=== PATIENT | male | born 1975 | race Caucasian/White ===

== ENCOUNTER 2017-04-14 15:35 | Emergency (ER) | payer OTHER ==
[~2017-04-14] VITALS: Ht 182.9 cm; Wt 102.3 kg
[~2017-04-14 15:35] MED LIST: QUET100T PO
[2017-04-14 16:10] LABS: BASOPHILS % (AUTO) 0.3 % (0.0-2.0); EOSINOPHILS % (AUTO) 1.1 % (1.0-6.0); HEMATOCRIT 33.3 % (41-53); HEMOGLOBIN 10.7 g/dL (13.5-17.5); LYMPHOCYTES # (AUTO) 1.6 K/uL (1.0-4.8); LYMPHOCYTES % (AUTO) 20.1 % (22.0-44.0); MEAN CORPUSCULAR HEMOGLOBIN 23.1 pg (26.0-34.0); MEAN CORPUSCULAR HGB CONC 32.3 G/dL (31.0-37.0); MEAN CORPUSCULAR VOLUME 72 fL (80-100); MONOCYTES # (AUTO) 0.5 K/uL (0.1-1.0); MONOCYTES % (AUTO) 5.8 % (2.0-9.0); NEUTROPHILS # (AUTO) 5.9 K/uL (1.8-7.7); NEUTROPHILS % (AUTO) 72.7 % (40.0-70.0); PLATELET COUNT (AUTO) 412 K/uL (150-450); RED BLOOD CELL COUNT(AUTO) 4.64 MIL/uL (4.50-5.90); RED CELL DISTRIBUTION WIDTH 17.8 % (11.5-14.5); WHITE BLOOD COUNT (AUTO) 8.1 K/uL (4.5-11.0)
[2017-04-14 16:19] LABS: ANION GAP 11 mmol/L (8-16); CALCIUM, TOTAL 9.1 mg/dL (8.8-10.5); CARBON DIOXIDE 24 mmol/L (22-29); CHLORIDE 105 mmol/L (98-107); CREATININE 1.06 mg/dL (0.60-1.30); GLOMERULAR FILTR. RATE CALC > 60 mL/min (>60); POTASSIUM 3.7 mmol/L (3.5-5.1); SODIUM SERUM 140 mmol/L (136-145); UREA NITROGEN, BLOOD 13 mg/dL (7-18)
[2017-04-14 16:25] LABS: ALANINE AMINOTRANSFERASE 26 U/L (12-78); ALBUMIN 3.6 g/dL (3.4-5.0); ASPARTATE AMINOTRANSFERASE 15 U/L (15-37); BILIRUBIN,TOTAL 0.2 mg/dL (0.1-1.0); TOTAL PROTEIN, SERUM 7.9 g/dL (6.4-8.2)
[2017-04-14 16:36] LABS: RBC MORPHOLOGY COMMENT ABNORMAL RBC MORPH
[2017-04-14] MEDS ORDERED: LORazepam 2 MG TABLET PO ONE (20:00)
[2017-04-14 20:17] VITALS: BP 119/76
== END 2017-04-14 20:25 | disposition home or self-care (01) ==
LOC: EMS 15:36
DX: F41.9 Anxiety disorder, unspecified (principal); F20.9 Schizophrenia, unspecified; F17.210 Nicotine dependence, cigarettes, uncomplicated
CPT/HCPCS: 36415; 80053; 80307; 85025; 99284; 99406; G0480

== ENCOUNTER 2017-08-09 20:41 | Inpatient (IN) | payer MEDICAID, OTHER ==
[~2017-08-09] VITALS: Ht 182.9 cm; Wt 113.1 kg
[2017-08-09] MEDS ORDERED: LORA0.5T2 PO (21:00)
[2017-08-09] MEDS ORDERED: HALO1 PO (21:00)
[2017-08-09] MEDS ORDERED: BENZ0.5T6 PO (21:00)
[2017-08-09] MEDS ORDERED: OLAN2.5T3 PO (21:00)
[2017-08-09] MEDS ORDERED: INFLUENZA VIRUS VACCINE QVS 2017-18 (3YR+)/PF 60 MCG/0.5 ML SYRINGE IM ONE (21:15)
[2017-08-09 21:26] LABS: BASOPHILS # (AUTO) 0.06 K/uL (0.00-0.20); BASOPHILS % (AUTO) 0.8 % (0.0-2.0); EOSINOPHILS # (AUTO) 0.09 K/uL (0.00-0.70); EOSINOPHILS % (AUTO) 1.18 % (1.0-6.0); HEMOGLOBIN 9.7 g/dL (13.5-17.5); LYMPHOCYTES # (AUTO) 2.3 K/uL (1.0-4.8); LYMPHOCYTES % (AUTO) 30.8 % (22.0-44.0); MEAN CORPUSCULAR HEMOGLOBIN 20.3 pg (26.0-34.0); MEAN CORPUSCULAR HGB CONC 30.4 G/dL (31.0-37.0); MEAN CORPUSCULAR VOLUME 67 fL (80-100); MONOCYTES # (AUTO) 0.7 K/uL (0.1-1.0); MONOCYTES % (AUTO) 8.8 % (2.0-9.0); NEUTROPHILS # (AUTO) 4.4 K/uL (1.8-7.7); NEUTROPHILS % (AUTO) 58.4 % (40.0-70.0); PLATELET COUNT (AUTO) 468 K/uL (150-450); RED CELL DISTRIBUTION WIDTH 19.9 % (11.5-14.5)
[2017-08-09 21:35] LABS: ANION GAP 5 mmol/L (8-16); CALCIUM, TOTAL 8.6 mg/dL (8.8-10.5); CARBON DIOXIDE 30 mmol/L (22-29); CHLORIDE 102 mmol/L (98-107); CREATININE 0.94 mg/dL (0.60-1.30); GLOMERULAR FILTR. RATE CALC > 60 mL/min (>60); GLUCOSE,RANDOM 108 mg/dL (70-110); POTASSIUM 3.7 mmol/L (3.5-5.1); SODIUM SERUM 137 mmol/L (136-145); UREA NITROGEN, BLOOD 13 mg/dL (7-18)
[2017-08-09 21:36] LABS: AMPHET/METH SCREEN,URINE POSITIVE (NEGATIVE); BARBITURATE SCREEN, URINE NEGATIVE (NEGATIVE); BENZODIAZEPINES SCREEN,URINE NEGATIVE (NEGATIVE); CANNABINOID SCREEN,URINE NEGATIVE (NEGATIVE); COCAINE SCREEN,URINE NEGATIVE (NEGATIVE); METHADONE SCREEN, URINE NEGATIVE (NEGATIVE); OPIATE SCREEN,URINE NEGATIVE (NEGATIVE)
[2017-08-09 21:39] LABS: APPEARANCE,URINE CLEAR (CLEAR); BILIRUBIN,URINE NEGATIVE (NEGATIVE); GLUCOSE, URINE (UA) NEGATIVE (NEGATIVE); KETONES,URINE NEGATIVE (NEGATIVE); LEUKOCYTE ESTERASE ,URINE NEGATIVE (NEGATIVE); NITRATE,URINE NEGATIVE (NEGATIVE); OCCULT BLOOD,URINE NEGATIVE (NEGATIVE); PHENCYCLIDINE SCREEN,URINE NEGATIVE (NEGATIVE); PROTEIN,URINE NEGATIVE (NEGATIVE); UROBILINOGEN,URINE 0.2 mg/dL (<=1.0)
[2017-08-09 21:41] LABS: ALANINE AMINOTRANSFERASE 25 U/L (12-78); ALBUMIN 3.3 g/dL (3.4-5.0); ALKALINE PHOSPHATASE 95 U/L (46-116); ASPARTATE AMINOTRANSFERASE 16 U/L (15-37); BILIRUBIN,TOTAL 0.2 mg/dL (0.1-1.0); TOTAL PROTEIN, SERUM 7.5 g/dL (6.4-8.2)
[2017-08-09 22:08] LABS: PLATELET MORPHOLOGY COMMENT INCREASED
[2017-08-09] MEDS: ZOLPIDEM TARTRATE 10 MG TABLET PO PRN (22:56)
[2017-08-09] MEDS: LORazepam 2 MG TABLET PO PRN (22:56)
[2017-08-10 06:22] LABS: BASOPHILS # (AUTO) 0.06 K/uL (0.00-0.20); BASOPHILS % (AUTO) 0.7 % (0.0-2.0); EOSINOPHILS # (AUTO) 0.11 K/uL (0.00-0.70); EOSINOPHILS % (AUTO) 1.44 % (1.0-6.0); HEMATOCRIT 30.6 % (41-53); HEMOGLOBIN 9.6 g/dL (13.5-17.5); LYMPHOCYTES # (AUTO) 2.4 K/uL (1.0-4.8); LYMPHOCYTES % (AUTO) 31.2 % (22.0-44.0); MEAN CORPUSCULAR HEMOGLOBIN 20.9 pg (26.0-34.0); MEAN CORPUSCULAR HGB CONC 31.3 G/dL (31.0-37.0); MEAN CORPUSCULAR VOLUME 67 fL (80-100); MONOCYTES # (AUTO) 0.8 K/uL (0.1-1.0); NEUTROPHILS # (AUTO) 4.3 K/uL (1.8-7.7); NEUTROPHILS % (AUTO) 56.6 % (40.0-70.0); PLATELET COUNT (AUTO) 413 K/uL (150-450); RED BLOOD CELL COUNT(AUTO) 4.59 MIL/uL (4.50-5.90); RED CELL DISTRIBUTION WIDTH 19.6 % (11.5-14.5)
[2017-08-10 06:31] LABS: HEMOGLOBIN A1C 5.7 % (4.5-6.2)
[2017-08-10 07:06] LABS: ALANINE AMINOTRANSFERASE 25 U/L (12-78); ALBUMIN 3.1 g/dL (3.4-5.0); ALKALINE PHOSPHATASE 88 U/L (46-116); ANION GAP 5 mmol/L (8-16); ASPARTATE AMINOTRANSFERASE 15 U/L (15-37); BILIRUBIN,TOTAL 0.2 mg/dL (0.1-1.0); CALCIUM, TOTAL 8.4 mg/dL (8.8-10.5); CARBON DIOXIDE 30 mmol/L (22-29); CHLORIDE 103 mmol/L (98-107); CHOL/HDL RATIO 3.7 (4.2-7.3); CHOLESTEROL 119 mg/dL (131-200); CREATININE 1.13 mg/dL (0.60-1.30); FREE T4 (FREE THYROXINE) 0.92 ng/dL (0.76-1.46); GLOMERULAR FILTR. RATE CALC > 60 mL/min (>60); GLUCOSE,RANDOM 92 mg/dL (70-110); HDL CHOLESTEROL 32 mg/dL (40-60); LDL CHOL (CALC.) 69 mg/dL (0-130); POTASSIUM 3.9 mmol/L (3.5-5.1); SODIUM SERUM 138 mmol/L (136-145); THYROID STIMULATING HORMONE 2.35 uIU/mL (0.36-3.74); TOTAL PROTEIN, SERUM 7.1 g/dL (6.4-8.2); TRIGLYCERIDES 92 mg/dL (15-150); UREA NITROGEN, BLOOD 13 mg/dL (7-18)
[2017-08-10] MEDS ORDERED: NICOTINE 14 MG/24 HOUR PATCH TD ONE (09:50)
[2017-08-10] MEDS: HALOPERIDOL 5 MG TABLET PO PRN ×2 (10:02→14:05)
[2017-08-10] MEDS: LORazepam 2 MG TABLET PO PRN ×2 (10:02→14:05)
[2017-08-10 17:08] VITALS: BP 127/77
[2017-08-10] MEDS: ZOLPIDEM TARTRATE 10 MG TABLET PO PRN (21:00)
[2017-08-11 08:00] VITALS: BP 132/83
[2017-08-11] MEDS: LORazepam 2 MG TABLET PO PRN (10:34)
[2017-08-11] MEDS: HALOPERIDOL 5 MG TABLET PO PRN (10:34)
[2017-08-11] MEDS ORDERED: BENZTROPINE MESYLATE 0.5 MG TABLET PO SCH (11:15)
[2017-08-11] MEDS ORDERED: OLANZapine 2.5 MG TABLET PO SCH (11:15)
[2017-08-11] MEDS ORDERED: QUET200T PO (11:17)
[2017-08-11] MEDS ORDERED: QUEtiapine FUMARATE 200 MG TABLET PO SCH (17:00)
== END 2017-08-11 15:17 | disposition home or self-care (01) | DRG 750 ==
LOC: BV PSY EVL 20:42 → 3EI 08-10 15:35
PROVIDERS: ADMIT Psychiatry & Neurology Child & Adolescent Psychiatry; ATTEND Psychiatry & Neurology Child & Adolescent Psychiatry
DX: F20.0 Paranoid schizophrenia (principal); F15.10 Other stimulant abuse, uncomplicated; D64.9 Anemia, unspecified; Z28.21 Immunization not carried out because of patient refusal; F12.90 Cannabis use, unspecified, uncomplicated; F17.210 Nicotine dependence, cigarettes, uncomplicated; F41.9 Anxiety disorder, unspecified
CPT/HCPCS: 83036; 84439; 84443; 99285; G0480

== ENCOUNTER 2017-08-17 16:14 | Emergency (ER) | payer MEDICAID, OTHER ==
[~2017-08-17] VITALS: Ht 182.9 cm; Wt 100.0 kg
[~2017-08-17 16:14] MED LIST changes: +BENZ0.5T6 PO; +OLAN2.5T3 PO; -QUET100T PO; +QUET200T PO
[2017-08-17] MEDS ORDERED: HALOPERIDOL 5 MG TABLET PO ONE (17:30)
[2017-08-17 19:37] VITALS: BP 138/80
== END 2017-08-17 19:39 | disposition home or self-care (01) ==
LOC: EMS 16:15
DX: F20.9 Schizophrenia, unspecified (principal); F64.9 Gender identity disorder, unspecified; F17.210 Nicotine dependence, cigarettes, uncomplicated
CPT/HCPCS: 99284

== ENCOUNTER 2017-10-16 00:14 | Emergency (ER) | payer OTHER ==
[~2017-10-16] VITALS: Ht 182.9 cm; Wt 102.3 kg
[2017-10-16] MEDS ORDERED: HALOPERIDOL LACTATE 5 MG/ML VIAL IM ONE (01:00)
[2017-10-16] MEDS ORDERED: LORazepam 2 MG/ML VIAL IM ONE (01:00)
[2017-10-16] MEDS ORDERED: DiphenhydrAMINE HCL 50 MG/ML VIAL IM ONE (01:00)
[2017-10-16 01:16] LABS: BASOPHILS % (AUTO) 1.2 % (0.0-2.0); HEMATOCRIT 31.3 % (41-53); HEMOGLOBIN 9.7 g/dL (13.5-17.5); LYMPHOCYTES # (AUTO) 2.2 K/uL (1.0-4.8); LYMPHOCYTES % (AUTO) 32.3 % (22.0-44.0); MEAN CORPUSCULAR HEMOGLOBIN 20.1 pg (26.0-34.0); MEAN CORPUSCULAR HGB CONC 31.1 G/dL (31.0-37.0); MEAN CORPUSCULAR VOLUME 65 fL (80-100); MONOCYTES # (AUTO) 0.8 K/uL (0.1-1.0); MONOCYTES % (AUTO) 11.2 % (2.0-9.0); NEUTROPHILS # (AUTO) 3.7 K/uL (1.8-7.7); NEUTROPHILS % (AUTO) 53.3 % (40.0-70.0); PLATELET COUNT (AUTO) 384 K/uL (150-450); RED BLOOD CELL COUNT(AUTO) 4.83 MIL/uL (4.50-5.90); RED CELL DISTRIBUTION WIDTH 19.5 % (11.5-14.5)
[2017-10-16 01:26] LABS: ANION GAP 8 mmol/L (8-16); CALCIUM, TOTAL 9.2 mg/dL (8.8-10.5); CARBON DIOXIDE 29 mmol/L (22-29); CHLORIDE 104 mmol/L (98-107); CREATININE 1.06 mg/dL (0.60-1.30); GLOMERULAR FILTR. RATE CALC > 60 mL/min (>60); GLUCOSE,RANDOM 99 mg/dL (70-110); SODIUM SERUM 141 mmol/L (136-145); UREA NITROGEN, BLOOD 14 mg/dL (7-18)
[2017-10-16 01:32] LABS: ALANINE AMINOTRANSFERASE 18 U/L (12-78); ALKALINE PHOSPHATASE 97 U/L (46-116); ASPARTATE AMINOTRANSFERASE 12 U/L (15-37); BILIRUBIN,TOTAL 0.2 mg/dL (0.1-1.0)
[2017-10-16 02:33] LABS: AMPHET/METH SCREEN,URINE POSITIVE (NEGATIVE); BARBITURATE SCREEN, URINE NEGATIVE (NEGATIVE); BENZODIAZEPINES SCREEN,URINE NEGATIVE (NEGATIVE); CANNABINOID SCREEN,URINE NEGATIVE (NEGATIVE); COCAINE SCREEN,URINE NEGATIVE (NEGATIVE); METHADONE SCREEN, URINE NEGATIVE (NEGATIVE); OPIATE SCREEN,URINE NEGATIVE (NEGATIVE)
[2017-10-16 02:37] LABS: PHENCYCLIDINE SCREEN,URINE NEGATIVE (NEGATIVE)
[2017-10-16 05:30] VITALS: BP 136/78
== END 2017-10-16 06:11 | disposition home or self-care (01) ==
LOC: EMS 00:15
DX: F25.9 Schizoaffective disorder, unspecified (principal); F17.210 Nicotine dependence, cigarettes, uncomplicated; Z79.899 Other long term (current) drug therapy
CPT/HCPCS: 36415; 80053; 80307; 85025; 96372; 99284; G0480; J1200; J1630; J2060

== ENCOUNTER 2017-11-02 19:48 | Emergency (ER) | payer OTHER ==
[~2017-11-02] VITALS: Ht 182.9 cm; Wt 102.3 kg
[~2017-11-02 19:48] MED LIST changes: +BENZ0.5T44 PO; -BENZ0.5T6 PO
[2017-11-02 19:51] VITALS: BP 146/71
[2017-11-02] MEDS ORDERED: HALO10 PO (20:01)
[2017-11-02] MEDS ORDERED: LORA0.5T2 PO (20:01)
[2017-11-02] MEDS ORDERED: BENZ1TAB10 PO (20:01)
[2017-11-02 20:47] LABS: BASOPHILS % (AUTO) 1.1 % (0.0-2.0); HEMATOCRIT 32.3 % (41-53); LYMPHOCYTES # (AUTO) 2.1 K/uL (1.0-4.8); LYMPHOCYTES % (AUTO) 26.2 % (22.0-44.0); MEAN CORPUSCULAR HEMOGLOBIN 19.9 pg (26.0-34.0); MEAN CORPUSCULAR HGB CONC 30.8 G/dL (31.0-37.0); MEAN CORPUSCULAR VOLUME 65 fL (80-100); MONOCYTES # (AUTO) 0.6 K/uL (0.1-1.0); MONOCYTES % (AUTO) 7.8 % (2.0-9.0); NEUTROPHILS % (AUTO) 62.9 % (40.0-70.0); PLATELET COUNT (AUTO) 385 K/uL (150-450); RED BLOOD CELL COUNT(AUTO) 5.01 MIL/uL (4.50-5.90); RED CELL DISTRIBUTION WIDTH 19.4 % (11.5-14.5)
[2017-11-02 20:57] LABS: ANION GAP 8 mmol/L (8-16); CALCIUM, TOTAL 8.8 mg/dL (8.8-10.5); CARBON DIOXIDE 28 mmol/L (22-29); CHLORIDE 107 mmol/L (98-107); CREATININE 0.87 mg/dL (0.60-1.30); GLOMERULAR FILTR. RATE CALC > 60 mL/min (>60); GLUCOSE,RANDOM 93 mg/dL (70-110); SODIUM SERUM 143 mmol/L (136-145); UREA NITROGEN, BLOOD 13 mg/dL (7-18)
[2017-11-02 21:00] LABS: ALANINE AMINOTRANSFERASE 29 U/L (12-78); ALBUMIN 3.5 g/dL (3.4-5.0); ALKALINE PHOSPHATASE 105 U/L (46-116); ASPARTATE AMINOTRANSFERASE 23 U/L (15-37); BILIRUBIN,TOTAL 0.2 mg/dL (0.1-1.0); TOTAL PROTEIN, SERUM 7.5 g/dL (6.4-8.2)
[2017-11-02 21:06] LABS: AMPHET/METH SCREEN,URINE POSITIVE (NEGATIVE); BARBITURATE SCREEN, URINE NEGATIVE (NEGATIVE); BENZODIAZEPINES SCREEN,URINE NEGATIVE (NEGATIVE); CANNABINOID SCREEN,URINE NEGATIVE (NEGATIVE); COCAINE SCREEN,URINE NEGATIVE (NEGATIVE); METHADONE SCREEN, URINE NEGATIVE (NEGATIVE); OPIATE SCREEN,URINE NEGATIVE (NEGATIVE)
[2017-11-02 21:08] LABS: PHENCYCLIDINE SCREEN,URINE NEGATIVE (NEGATIVE)
[2017-11-02 21:19] LABS: PLATELET MORPHOLOGY COMMENT GIANT PLTS PRESENT
[2017-11-03] MEDS ORDERED: QUET25TA PO (12:39)
[2017-11-03] MEDS ORDERED: VENL25TA47 PO (12:39)
== END 2017-11-02 22:30 | disposition left against medical advice (07) ==
LOC: EMS 19:49
DX: F29 Unspecified psychosis not due to a substance or known physiological condition (principal); Z53.21 Procedure and treatment not carried out due to patient leaving prior to being seen by health care provider
CPT/HCPCS: 36415; 80053; 80307; 85025; G0480

== ENCOUNTER 2017-11-03 12:31 | Inpatient (IN) | payer MEDICAID, OTHER ==
[~2017-11-03] VITALS: Ht 188 cm; Wt 108.7 kg
[~2017-11-03 12:31] MED LIST changes: -BENZ0.5T44 PO; +BENZ1TAB10 PO; +HALO10 PO; +LORA0.5T2 PO; -OLAN2.5T3 PO; -QUET200T PO
[2017-11-03] MEDS ORDERED: QUET25TA PO (12:39)
[2017-11-03] MEDS ORDERED: VENL25TA47 PO (12:39)
[2017-11-03 13:05] LABS: BASOPHILS % (AUTO) 1.2 % (0.0-2.0); EOSINOPHILS % (AUTO) 1.7 % (1.0-6.0); HEMATOCRIT 31.7 % (41-53); LYMPHOCYTES % (AUTO) 28.3 % (22.0-44.0); MEAN CORPUSCULAR HEMOGLOBIN 20.2 pg (26.0-34.0); MEAN CORPUSCULAR HGB CONC 31.5 G/dL (31.0-37.0); MEAN CORPUSCULAR VOLUME 64 fL (80-100); MONOCYTES # (AUTO) 0.5 K/uL (0.1-1.0); NEUTROPHILS # (AUTO) 4.3 K/uL (1.8-7.7); NEUTROPHILS % (AUTO) 61.8 % (40.0-70.0); PLATELET COUNT (AUTO) 378 K/uL (150-450); RED BLOOD CELL COUNT(AUTO) 4.94 MIL/uL (4.50-5.90); RED CELL DISTRIBUTION WIDTH 19.4 % (11.5-14.5)
[2017-11-03 13:09] LABS: ANION GAP 7 mmol/L (8-16); CALCIUM, TOTAL 8.8 mg/dL (8.8-10.5); CARBON DIOXIDE 28 mmol/L (22-29); CHLORIDE 106 mmol/L (98-107); CREATININE 0.88 mg/dL (0.60-1.30); GLOMERULAR FILTR. RATE CALC > 60 mL/min (>60); GLUCOSE,RANDOM 100 mg/dL (70-110); POTASSIUM 3.8 mmol/L (3.5-5.1); SODIUM SERUM 141 mmol/L (136-145); UREA NITROGEN, BLOOD 11 mg/dL (7-18)
[2017-11-03 13:15] LABS: ALANINE AMINOTRANSFERASE 26 U/L (12-78); ALBUMIN 3.4 g/dL (3.4-5.0); ALKALINE PHOSPHATASE 102 U/L (46-116); ASPARTATE AMINOTRANSFERASE 15 U/L (15-37); BILIRUBIN,TOTAL 0.3 mg/dL (0.1-1.0); TOTAL PROTEIN, SERUM 7.4 g/dL (6.4-8.2)
[2017-11-03 13:16] LABS: AMPHET/METH SCREEN,URINE POSITIVE (NEGATIVE); BARBITURATE SCREEN, URINE NEGATIVE (NEGATIVE); BENZODIAZEPINES SCREEN,URINE NEGATIVE (NEGATIVE); CANNABINOID SCREEN,URINE NEGATIVE (NEGATIVE); COCAINE SCREEN,URINE NEGATIVE (NEGATIVE); METHADONE SCREEN, URINE NEGATIVE (NEGATIVE); OPIATE SCREEN,URINE NEGATIVE (NEGATIVE)
[2017-11-03 13:18] LABS: PHENCYCLIDINE SCREEN,URINE NEGATIVE (NEGATIVE)
[2017-11-03] MEDS ORDERED: LORazepam 2 MG TABLET PO ONE (13:45)
[2017-11-03] MEDS ORDERED: HALOPERIDOL 5 MG TABLET PO ONE (13:45)
[2017-11-03] MEDS ORDERED: LOPERAMIDE HCL 2 MG CAPSULE PO PRN (14:15)
[2017-11-03] MEDS ORDERED: MAG HYDROX/AL HYDROX/SIMETH ES 30 ML SUSPENSION UDCUP PO PRN (14:15)
[2017-11-03] MEDS ORDERED: GuaiFENesin/D-METHORPHAN [SUGAR-FREE] 200-20MG/10 ML SYRUP UDCUP PO PRN (14:15)
[2017-11-03] MEDS ORDERED: MAGNESIUM HYDROXIDE SUSPENSION 30 ML UDCUP PO PRN (14:15)
[2017-11-03] MEDS ORDERED: PROMETHAZINE HCL 25 MG TABLET PO PRN (14:15)
[2017-11-03] MEDS ORDERED: ACETAMINOPHEN 325 MG TABLET PO PRN (14:15)
[2017-11-03] MEDS ORDERED: HydrOXYzine PAMOATE 50 MG CAPSULE PO PRN (14:15)
[2017-11-03] MEDS ORDERED: TUBERCULIN, PURIFIED PROTEIN DERIVATIVE 5 TU/0.1 ML SYG ID ONE (14:15)
[2017-11-03 21:15] VITALS: BP 117/66
[2017-11-04 06:39] LABS: BASOPHILS % (AUTO) 1.2 % (0.0-2.0); EOSINOPHILS % (AUTO) 2.7 % (1.0-6.0); HEMATOCRIT 30.5 % (41-53); HEMOGLOBIN 9.6 g/dL (13.5-17.5); LYMPHOCYTES # (AUTO) 2.3 K/uL (1.0-4.8); LYMPHOCYTES % (AUTO) 36.2 % (22.0-44.0); MEAN CORPUSCULAR HEMOGLOBIN 20.3 pg (26.0-34.0); MEAN CORPUSCULAR HGB CONC 31.5 G/dL (31.0-37.0); MEAN CORPUSCULAR VOLUME 64 fL (80-100); MONOCYTES # (AUTO) 0.5 K/uL (0.1-1.0); MONOCYTES % (AUTO) 8.7 % (2.0-9.0); NEUTROPHILS # (AUTO) 3.2 K/uL (1.8-7.7); NEUTROPHILS % (AUTO) 51.2 % (40.0-70.0); PLATELET COUNT (AUTO) 360 K/uL (150-450); RED BLOOD CELL COUNT(AUTO) 4.75 MIL/uL (4.50-5.90); RED CELL DISTRIBUTION WIDTH 19.4 % (11.5-14.5)
[2017-11-04 07:33] LABS: ALANINE AMINOTRANSFERASE 22 U/L (12-78); ALKALINE PHOSPHATASE 86 U/L (46-116); ANION GAP 6 mmol/L (8-16); ASPARTATE AMINOTRANSFERASE 11 U/L (15-37); BILIRUBIN,TOTAL 0.3 mg/dL (0.1-1.0); CALCIUM, TOTAL 8.5 mg/dL (8.8-10.5); CARBON DIOXIDE 27 mmol/L (22-29); CHLORIDE 106 mmol/L (98-107); CHOL/HDL RATIO 3.9 (4.2-7.3); CHOLESTEROL 110 mg/dL (131-200); CREATININE 0.87 mg/dL (0.60-1.30); FREE T4 (FREE THYROXINE) 0.91 ng/dL (0.76-1.46); GLOMERULAR FILTR. RATE CALC > 60 mL/min (>60); GLUCOSE,RANDOM 86 mg/dL (70-110); HDL CHOLESTEROL 28 mg/dL (40-60); LDL CHOL (CALC.) 66 mg/dL (0-130); POTASSIUM 4.1 mmol/L (3.5-5.1); SODIUM SERUM 139 mmol/L (136-145); THYROID STIMULATING HORMONE 2.04 uIU/mL (0.36-3.74); TOTAL PROTEIN, SERUM 6.5 g/dL (6.4-8.2); TRIGLYCERIDES 80 mg/dL (15-150); UREA NITROGEN, BLOOD 10 mg/dL (7-18)
[2017-11-04 07:41] LABS: HEMOGLOBIN A1C 5.4 % (4.5-6.2)
[2017-11-04 08:00] VITALS: BP 118/60
[2017-11-04] MEDS: THIAMINE HCL 100 MG TABLET PO SCH ×2 (08:31→17:29)
[2017-11-04] MEDS: MULTIVITAMINS WITH MINERALS, THERAPEUTIC TABLET PO SCH (08:31)
[2017-11-04] MEDS: HALOPERIDOL 1 MG TABLET PO SCH ×3 (08:31→17:30)
[2017-11-04] MEDS: NALTREXONE HCL 50 MG TABLET PO SCH (08:31)
[2017-11-04] MEDS: FOLIC ACID 1 MG TABLET PO SCH (08:31)
[2017-11-04] MEDS: LORazepam 2 MG TABLET PO PRN ×2 (08:32→14:06)
[2017-11-04] MEDS: HALOPERIDOL 5 MG TABLET PO PRN (14:06)
[2017-11-04 17:00] VITALS: BP 118/69
[2017-11-04] MEDS: HALOPERIDOL 2 MG TABLET PO SCH (20:38)
[2017-11-05 08:00] VITALS: BP 120/60
[2017-11-05] MEDS: HALOPERIDOL 2 MG TABLET PO SCH ×4 (09:06→20:03)
[2017-11-05] MEDS: NALTREXONE HCL 50 MG TABLET PO SCH (09:07)
[2017-11-05] MEDS: LORazepam 2 MG TABLET PO PRN ×3 (09:07→20:57)
[2017-11-05] MEDS: FOLIC ACID 1 MG TABLET PO SCH (09:07)
[2017-11-05] MEDS: THIAMINE HCL 100 MG TABLET PO SCH ×2 (09:07→16:43)
[2017-11-05] MEDS: MULTIVITAMINS WITH IRON TABLET PO SCH (09:07)
[2017-11-05] MEDS: MULTIVITAMINS WITH MINERALS, THERAPEUTIC TABLET PO SCH (09:07)
[2017-11-05 17:45] VITALS: BP 117/67
[2017-11-05] MEDS: NICOTINE 21 MG/24 HOUR PATCH TD SCH (20:55)
[2017-11-05] MEDS: ZOLPIDEM TARTRATE 10 MG TABLET PO PRN (20:57)
[2017-11-06 08:05] VITALS: BP 109/78
[2017-11-06] MEDS: NICOTINE 21 MG/24 HOUR PATCH TD SCH (09:51)
[2017-11-06] MEDS: HALOPERIDOL 2 MG TABLET PO SCH ×3 (09:51→16:16)
[2017-11-06] MEDS: NALTREXONE HCL 50 MG TABLET PO SCH (09:52)
[2017-11-06] MEDS: FOLIC ACID 1 MG TABLET PO SCH (09:52)
[2017-11-06] MEDS: MULTIVITAMINS WITH MINERALS, THERAPEUTIC TABLET PO SCH (09:52)
[2017-11-06] MEDS: THIAMINE HCL 100 MG TABLET PO SCH ×2 (09:52→16:17)
[2017-11-06] MEDS: MULTIVITAMINS WITH IRON TABLET PO SCH (09:52)
[2017-11-06] MEDS: HALOPERIDOL 5 MG TABLET PO PRN (13:52)
[2017-11-06] MEDS: LORazepam 2 MG TABLET PO PRN (13:52)
[2017-11-06] MEDS ORDERED: NALT50TA PO (17:29)
[2017-11-06] MEDS ORDERED: HALO2 PO (17:30)
[2017-11-06 17:43] VITALS: BP 103/59
[2017-11-06] MEDS: ZOLPIDEM TARTRATE 10 MG TABLET PO PRN (20:10)
[2017-11-06] MEDS: HALOPERIDOL 1 MG TABLET PO SCH (20:10)
[2017-11-07] MEDS: THIAMINE HCL 100 MG TABLET PO SCH (08:07)
[2017-11-07] MEDS: NALTREXONE HCL 50 MG TABLET PO SCH (08:07)
[2017-11-07] MEDS: MULTIVITAMINS WITH MINERALS, THERAPEUTIC TABLET PO SCH (08:07)
[2017-11-07] MEDS: FOLIC ACID 1 MG TABLET PO SCH (08:07)
[2017-11-07] MEDS: HALOPERIDOL 1 MG TABLET PO SCH ×2 (08:08→12:15)
[2017-11-07] MEDS: MULTIVITAMINS WITH IRON TABLET PO SCH (08:10)
[2017-11-07] MEDS: NICOTINE 21 MG/24 HOUR PATCH TD SCH (08:11)
[2017-11-07 08:56] VITALS: BP 126/64
[2017-11-07] MEDS ORDERED: MULT-1239 PO (09:51)
== END 2017-11-07 13:00 | disposition home or self-care (01) | DRG 750 ==
LOC: EMS 12:32 → 3EI 21:12
PROVIDERS: ADMIT Psychiatry & Neurology Psychiatry; ATTEND Psychiatry & Neurology Psychiatry
DX: F20.0 Paranoid schizophrenia (principal); R45.851 Suicidal ideations; D50.9 Iron deficiency anemia, unspecified; F41.9 Anxiety disorder, unspecified; F17.210 Nicotine dependence, cigarettes, uncomplicated; F12.90 Cannabis use, unspecified, uncomplicated; F15.90 Other stimulant use, unspecified, uncomplicated; Z79.899 Other long term (current) drug therapy; Z91.5 Personal history of self-harm
CPT/HCPCS: 80173; 83036; 84439; 84443; 86592; G0480

== ENCOUNTER 2017-11-21 18:16 | Inpatient (IN) | payer MEDICAID, OTHER ==
[~2017-11-21] VITALS: Ht 182.9 cm; Wt 148.3 kg
[~2017-11-21 18:16] MED LIST changes: -BENZ1TAB10 PO; -HALO10 PO; +HALO2 PO; -LORA0.5T2 PO; +MULT-1239 PO; +NALT50TA PO
[2017-11-21] MEDS ORDERED: DIPH25 PO (18:36)
[2017-11-21 19:15] LABS: AMPHET/METH SCREEN,URINE NEGATIVE (NEGATIVE); BARBITURATE SCREEN, URINE NEGATIVE (NEGATIVE); BENZODIAZEPINES SCREEN,URINE NEGATIVE (NEGATIVE); CANNABINOID SCREEN,URINE POSITIVE (NEGATIVE); COCAINE SCREEN,URINE NEGATIVE (NEGATIVE); METHADONE SCREEN, URINE NEGATIVE (NEGATIVE); OPIATE SCREEN,URINE NEGATIVE (NEGATIVE)
[2017-11-21 19:16] LABS: ANION GAP 6 mmol/L (8-16); CALCIUM, TOTAL 9.3 mg/dL (8.8-10.5); CARBON DIOXIDE 29 mmol/L (22-29); CHLORIDE 104 mmol/L (98-107); CREATININE 1.02 mg/dL (0.60-1.30); GLOMERULAR FILTR. RATE CALC > 60 mL/min (>60); GLUCOSE,RANDOM 95 mg/dL (70-110); POTASSIUM 4.2 mmol/L (3.5-5.1); SODIUM SERUM 139 mmol/L (136-145); UREA NITROGEN, BLOOD 12 mg/dL (7-18)
[2017-11-21 19:16] LABS: PHENCYCLIDINE SCREEN,URINE NEGATIVE (NEGATIVE)
[2017-11-21 19:21] LABS: ALANINE AMINOTRANSFERASE 30 U/L (12-78); ALBUMIN 3.7 g/dL (3.4-5.0); ALKALINE PHOSPHATASE 90 U/L (46-116); ASPARTATE AMINOTRANSFERASE 19 U/L (15-37); BILIRUBIN,TOTAL 0.2 mg/dL (0.1-1.0)
[2017-11-21 19:25] LABS: BASOPHILS % (AUTO) 0.9 % (0.0-2.0); EOSINOPHILS % (AUTO) 1.7 % (1.0-6.0); HEMATOCRIT 32.9 % (41-53); HEMOGLOBIN 10.3 g/dL (13.5-17.5); LYMPHOCYTES # (AUTO) 1.9 K/uL (1.0-4.8); LYMPHOCYTES % (AUTO) 19.6 % (22.0-44.0); MEAN CORPUSCULAR HEMOGLOBIN 20.6 pg (26.0-34.0); MEAN CORPUSCULAR HGB CONC 31.2 G/dL (31.0-37.0); MEAN CORPUSCULAR VOLUME 66 fL (80-100); MONOCYTES # (AUTO) 0.7 K/uL (0.1-1.0); NEUTROPHILS # (AUTO) 6.9 K/uL (1.8-7.7); NEUTROPHILS % (AUTO) 70.8 % (40.0-70.0); PLATELET COUNT (AUTO) 418 K/uL (150-450); RED BLOOD CELL COUNT(AUTO) 4.98 MIL/uL (4.50-5.90); RED CELL DISTRIBUTION WIDTH 21.9 % (11.5-14.5)
[2017-11-21] MEDS ORDERED: LORazepam 2 MG/ML VIAL IM ONE (19:30)
[2017-11-21] MEDS ORDERED: HALOPERIDOL LACTATE 5 MG/ML VIAL IM ONE (19:30)
[2017-11-21] MEDS ORDERED: HALOPERIDOL 5 MG TABLET PO PRN (21:15)
[2017-11-22 00:31] VITALS: BP 114/76
[2017-11-22] MEDS: LORazepam 2 MG TABLET PO PRN ×4 (00:39→16:19)
[2017-11-22] MEDS: ZOLPIDEM TARTRATE 10 MG TABLET PO PRN ×2 (00:39→20:22)
[2017-11-22 07:37] LABS: BASOPHILS % (AUTO) 0.7 % (0.0-2.0); EOSINOPHILS % (AUTO) 2.1 % (1.0-6.0); HEMATOCRIT 31.3 % (41-53); HEMOGLOBIN 9.9 g/dL (13.5-17.5); LYMPHOCYTES # (AUTO) 2.8 K/uL (1.0-4.8); LYMPHOCYTES % (AUTO) 34.2 % (22.0-44.0); MEAN CORPUSCULAR HEMOGLOBIN 20.9 pg (26.0-34.0); MEAN CORPUSCULAR HGB CONC 31.6 G/dL (31.0-37.0); MEAN CORPUSCULAR VOLUME 66 fL (80-100); MONOCYTES # (AUTO) 0.5 K/uL (0.1-1.0); MONOCYTES % (AUTO) 5.7 % (2.0-9.0); NEUTROPHILS # (AUTO) 4.6 K/uL (1.8-7.7); NEUTROPHILS % (AUTO) 57.3 % (40.0-70.0); PLATELET COUNT (AUTO) 423 K/uL (150-450); RED BLOOD CELL COUNT(AUTO) 4.73 MIL/uL (4.50-5.90)
[2017-11-22 07:59] LABS: ALANINE AMINOTRANSFERASE 26 U/L (12-78); ALBUMIN 3.2 g/dL (3.4-5.0); ALKALINE PHOSPHATASE 77 U/L (46-116); ANION GAP 8 mmol/L (8-16); ASPARTATE AMINOTRANSFERASE 16 U/L (15-37); BILIRUBIN,TOTAL 0.3 mg/dL (0.1-1.0); CALCIUM, TOTAL 8.9 mg/dL (8.8-10.5); CARBON DIOXIDE 28 mmol/L (22-29); CHLORIDE 105 mmol/L (98-107); CHOL/HDL RATIO 3.5 (4.2-7.3); CHOLESTEROL 110 mg/dL (131-200); CREATININE 0.77 mg/dL (0.60-1.30); GLOMERULAR FILTR. RATE CALC > 60 mL/min (>60); GLUCOSE,RANDOM 93 mg/dL (70-110); HDL CHOLESTEROL 31 mg/dL (40-60); LDL CHOL (CALC.) 60 mg/dL (0-130); POTASSIUM 4.2 mmol/L (3.5-5.1); SODIUM SERUM 141 mmol/L (136-145); TOTAL PROTEIN, SERUM 6.4 g/dL (6.4-8.2); TRIGLYCERIDES 95 mg/dL (15-150); UREA NITROGEN, BLOOD 13 mg/dL (7-18)
[2017-11-22 08:12] VITALS: BP 110/70
[2017-11-22] MEDS: HALOPERIDOL 1 MG TABLET PO SCH ×4 (09:26→20:22)
[2017-11-22 16:01] VITALS: BP 129/72
[2017-11-23 06:16] VITALS: BP 105/75
[2017-11-23] MEDS: FERROUS SULFATE 325 MG EC TABLET PO SCH (06:27)
[2017-11-23 08:05] VITALS: BP 104/66
[2017-11-23] MEDS: HALOPERIDOL 1 MG TABLET PO SCH ×4 (08:36→20:07)
[2017-11-23] MEDS: LORazepam 2 MG TABLET PO PRN ×3 (08:36→19:00)
[2017-11-23] MEDS: MULTIVITAMINS WITH IRON TABLET PO SCH (10:54)
[2017-11-23] MEDS: NICOTINE 21 MG/24 HOUR PATCH TD SCH (10:55)
[2017-11-23 16:21] VITALS: BP 130/68
[2017-11-23] MEDS: ZOLPIDEM TARTRATE 10 MG TABLET PO PRN (20:07)
[2017-11-24] MEDS: FERROUS SULFATE 325 MG EC TABLET PO SCH (06:34)
[2017-11-24 06:35] VITALS: BP 114/83
[2017-11-24] MEDS: MULTIVITAMINS WITH IRON TABLET PO SCH (08:06)
[2017-11-24] MEDS: HALOPERIDOL 1 MG TABLET PO SCH ×3 (08:06→16:27)
[2017-11-24] MEDS: NICOTINE 21 MG/24 HOUR PATCH TD SCH (08:07)
[2017-11-24 08:12] VITALS: BP 110/74
[2017-11-24 08:22] LABS: BASOPHILS % (AUTO) 0.7 % (0.0-2.0); HEMATOCRIT 34.8 % (41-53); HEMOGLOBIN 11.1 g/dL (13.5-17.5); LYMPHOCYTES # (AUTO) 2.2 K/uL (1.0-4.8); LYMPHOCYTES % (AUTO) 25.9 % (22.0-44.0); MEAN CORPUSCULAR HGB CONC 31.9 G/dL (31.0-37.0); MEAN CORPUSCULAR VOLUME 66 fL (80-100); MONOCYTES # (AUTO) 0.7 K/uL (0.1-1.0); MONOCYTES % (AUTO) 8.3 % (2.0-9.0); NEUTROPHILS # (AUTO) 5.3 K/uL (1.8-7.7); NEUTROPHILS % (AUTO) 63.1 % (40.0-70.0); PLATELET COUNT (AUTO) 457 K/uL (150-450); RED BLOOD CELL COUNT(AUTO) 5.29 MIL/uL (4.50-5.90); RED CELL DISTRIBUTION WIDTH 22.1 % (11.5-14.5)
[2017-11-24] MEDS: LORazepam 2 MG TABLET PO PRN (09:27)
[2017-11-24] MEDS ORDERED: MAGNESIUM HYDROXIDE SUSPENSION 30 ML UDCUP PO PRN (10:15)
[2017-11-24] MEDS ORDERED: PROMETHAZINE HCL 25 MG TABLET PO PRN (10:15)
[2017-11-24] MEDS ORDERED: ACETAMINOPHEN 325 MG TABLET PO PRN (10:15)
[2017-11-24] MEDS ORDERED: HydrOXYzine PAMOATE 50 MG CAPSULE PO PRN (10:15)
[2017-11-24] MEDS ORDERED: GuaiFENesin/D-METHORPHAN [SUGAR-FREE] 200-20MG/10 ML SYRUP UDCUP PO PRN (10:15)
[2017-11-24] MEDS ORDERED: LOPERAMIDE HCL 2 MG CAPSULE PO PRN (10:15)
[2017-11-24] MEDS ORDERED: MAG HYDROX/AL HYDROX/SIMETH ES 30 ML SUSPENSION UDCUP PO PRN (10:15)
[2017-11-24] MEDS ORDERED: HALO1 PO (13:38)
[2017-11-24] MEDS ORDERED: NALT50TA PO (13:38)
[2017-11-24 16:05] VITALS: BP 105/76
[2017-11-24] MEDS ORDERED: THIAMINE HCL 100 MG TABLET PO SCH (17:00)
[2017-11-25] MEDS ORDERED: FOLIC ACID 1 MG TABLET PO SCH (09:00)
[2017-11-25] MEDS ORDERED: MULTIVITAMINS WITH MINERALS, THERAPEUTIC TABLET PO SCH (09:00)
[2017-11-25] MEDS ORDERED: NALTREXONE HCL 50 MG TABLET PO SCH (09:00)
== END 2017-11-24 17:03 | disposition home or self-care (01) | DRG 750 ==
LOC: EMS 18:17 → B3A 21:30
PROVIDERS: ATTEND Psychiatry & Neurology Psychiatry
DX: F20.0 Paranoid schizophrenia (principal); R45.851 Suicidal ideations; D64.9 Anemia, unspecified; F12.10 Cannabis abuse, uncomplicated; F17.210 Nicotine dependence, cigarettes, uncomplicated; Z79.899 Other long term (current) drug therapy
CPT/HCPCS: 87081; 96372; 99285; G0480; J1630; J2060

== ENCOUNTER 2017-12-05 16:24 | Inpatient (IN) | payer MEDICAID, OTHER ==
[~2017-12-05] VITALS: Ht 170.2 cm; Wt 108.0 kg
[~2017-12-05 16:24] MED LIST changes: +HALO1 PO; -HALO2 PO
[2017-12-05] MEDS ORDERED: OLAN5TAB30 PO (16:28)
[2017-12-05 16:43] LABS: GLUCOSE,POINT OF CARE 97 MG/DL (70-110)
[2017-12-05 17:26] LABS: BASOPHILS % (AUTO) 1.2 % (0.0-2.0); HEMATOCRIT 32.9 % (41-53); HEMOGLOBIN 10.6 g/dL (13.5-17.5); LYMPHOCYTES % (AUTO) 27.5 % (22.0-44.0); MEAN CORPUSCULAR HEMOGLOBIN 21.8 pg (26.0-34.0); MEAN CORPUSCULAR HGB CONC 32.2 G/dL (31.0-37.0); MEAN CORPUSCULAR VOLUME 68 fL (80-100); MONOCYTES # (AUTO) 0.5 K/uL (0.1-1.0); MONOCYTES % (AUTO) 6.7 % (2.0-9.0); NEUTROPHILS # (AUTO) 4.6 K/uL (1.8-7.7); NEUTROPHILS % (AUTO) 63.6 % (40.0-70.0); PLATELET COUNT (AUTO) 366 K/uL (150-450); RED BLOOD CELL COUNT(AUTO) 4.87 MIL/uL (4.50-5.90); RED CELL DISTRIBUTION WIDTH 23.3 % (11.5-14.5)
[2017-12-05 17:37] LABS: ANION GAP 9 mmol/L (8-16); CALCIUM, TOTAL 8.5 mg/dL (8.8-10.5); CARBON DIOXIDE 27 mmol/L (22-29); CHLORIDE 108 mmol/L (98-107); CREATININE 0.91 mg/dL (0.60-1.30); GLOMERULAR FILTR. RATE CALC > 60 mL/min (>60); GLUCOSE,RANDOM 91 mg/dL (70-110); POTASSIUM 3.9 mmol/L (3.5-5.1); SODIUM SERUM 144 mmol/L (136-145); UREA NITROGEN, BLOOD 8 mg/dL (7-18)
[2017-12-05 17:44] LABS: ALANINE AMINOTRANSFERASE 20 U/L (12-78); ALBUMIN 3.1 g/dL (3.4-5.0); ALKALINE PHOSPHATASE 86 U/L (46-116); ASPARTATE AMINOTRANSFERASE 12 U/L (15-37); BILIRUBIN,TOTAL 0.2 mg/dL (0.1-1.0); TOTAL PROTEIN, SERUM 6.8 g/dL (6.4-8.2)
[2017-12-05 18:22] LABS: AMPHET/METH SCREEN,URINE NEGATIVE (NEGATIVE); BARBITURATE SCREEN, URINE NEGATIVE (NEGATIVE); BENZODIAZEPINES SCREEN,URINE NEGATIVE (NEGATIVE); CANNABINOID SCREEN,URINE NEGATIVE (NEGATIVE); COCAINE SCREEN,URINE NEGATIVE (NEGATIVE); METHADONE SCREEN, URINE NEGATIVE (NEGATIVE); OPIATE SCREEN,URINE NEGATIVE (NEGATIVE)
[2017-12-05 18:23] LABS: PHENCYCLIDINE SCREEN,URINE NEGATIVE (NEGATIVE)
[2017-12-05] MEDS ORDERED: LORazepam 2 MG/ML VIAL IM ONE (20:00)
[2017-12-05] MEDS ORDERED: HALOPERIDOL LACTATE 5 MG/ML VIAL IM ONE (20:00)
[2017-12-06 00:33] VITALS: BP 121/64
[2017-12-06 08:10] VITALS: BP 114/67
[2017-12-06] MEDS: MULTIVITAMINS WITH IRON TABLET PO SCH (08:49)
[2017-12-06] MEDS: LORazepam 2 MG TABLET PO PRN ×2 (08:49→17:04)
[2017-12-06] MEDS: HALOPERIDOL 5 MG TABLET PO PRN ×2 (08:50→17:04)
[2017-12-06 16:02] VITALS: BP 120/77
[2017-12-06] MEDS: ZIPRASIDONE HCL 40 MG CAPSULE PO SCH (17:04)
[2017-12-06] MEDS: NICOTINE 7 MG/24 HOUR PATCH TD SCH (17:04)
[2017-12-06] MEDS: TraZODone HCL 100 MG TABLET PO SCH (20:36)
[2017-12-06] MEDS: ZOLPIDEM TARTRATE 10 MG TABLET PO PRN (20:36)
[2017-12-07 03:21] VITALS: BP 108/77
[2017-12-07] MEDS: ZIPRASIDONE HCL 40 MG CAPSULE PO SCH ×2 (06:15→16:26)
[2017-12-07] MEDS: HALOPERIDOL 5 MG TABLET PO PRN ×2 (08:26→16:26)
[2017-12-07] MEDS: MULTIVITAMINS WITH IRON TABLET PO SCH (08:26)
[2017-12-07] MEDS: LORazepam 2 MG TABLET PO PRN ×2 (08:26→16:26)
[2017-12-07] MEDS: NICOTINE 7 MG/24 HOUR PATCH TD SCH (08:26)
[2017-12-07 08:27] VITALS: BP 112/65
[2017-12-07 16:00] VITALS: BP 109/67
[2017-12-07] MEDS: ZOLPIDEM TARTRATE 10 MG TABLET PO PRN (20:27)
[2017-12-07] MEDS: TraZODone HCL 100 MG TABLET PO SCH (20:27)
[2017-12-08 06:16] VITALS: BP 115/78
[2017-12-08] MEDS: ZIPRASIDONE HCL 40 MG CAPSULE PO SCH ×2 (06:34→16:23)
[2017-12-08 08:17] VITALS: BP 117/68
[2017-12-08] MEDS: MULTIVITAMINS WITH IRON TABLET PO SCH (09:07)
[2017-12-08] MEDS: NICOTINE 7 MG/24 HOUR PATCH TD SCH (09:07)
[2017-12-08] MEDS: LORazepam 2 MG TABLET PO PRN ×2 (10:32→14:12)
[2017-12-08 10:33] VITALS: BP 110/69
[2017-12-08] MEDS ORDERED: PROMETHAZINE HCL 25 MG TABLET PO PRN (11:00)
[2017-12-08] MEDS ORDERED: GuaiFENesin/D-METHORPHAN [SUGAR-FREE] 200-20MG/10 ML SYRUP UDCUP PO PRN (11:00)
[2017-12-08] MEDS ORDERED: MAG HYDROX/AL HYDROX/SIMETH ES 30 ML SUSPENSION UDCUP PO PRN (11:00)
[2017-12-08] MEDS ORDERED: ACETAMINOPHEN 325 MG TABLET PO PRN (11:00)
[2017-12-08] MEDS ORDERED: HydrOXYzine PAMOATE 50 MG CAPSULE PO PRN (11:00)
[2017-12-08] MEDS ORDERED: LOPERAMIDE HCL 2 MG CAPSULE PO PRN (11:00)
[2017-12-08 16:05] VITALS: BP 110/73
[2017-12-08] MEDS ORDERED: ZIPR40CA2 PO ×2 (16:07→17:05)
[2017-12-08] MEDS ORDERED: NALT50TA PO (16:07)
[2017-12-08] MEDS ORDERED: TRAZ-147 PO ×2 (16:07→17:02)
[2017-12-08] MEDS ORDERED: THIAMINE HCL 100 MG TABLET PO SCH (17:00)
[2017-12-08] MEDS ORDERED: THIA100T67 PO (17:02)
[2017-12-08] MEDS ORDERED: NALT50TA6 PO (17:05)
[2017-12-08] MEDS ORDERED: FOLI1 PO (17:05)
[2017-12-09] MEDS ORDERED: MULTIVITAMINS WITH MINERALS, THERAPEUTIC TABLET PO SCH (09:00)
[2017-12-09] MEDS ORDERED: NALTREXONE HCL 50 MG TABLET PO SCH (09:00)
[2017-12-09] MEDS ORDERED: FOLIC ACID 1 MG TABLET PO SCH (09:00)
== END 2017-12-08 17:30 | disposition home or self-care (01) | DRG 750 ==
LOC: EMS 16:26 → B3A 23:25
PROVIDERS: ATTEND Psychiatry & Neurology Psychiatry
DX: F20.0 Paranoid schizophrenia (principal); D64.9 Anemia, unspecified; F17.210 Nicotine dependence, cigarettes, uncomplicated
CPT/HCPCS: 87081; 96372; 99285; G0480; J1630; J2060

== ENCOUNTER 2018-06-24 17:39 | Inpatient (IN) | payer MEDICAID ==
[~2018-06-24] VITALS: Ht 182.9 cm; Wt 109.9 kg
[~2018-06-24 17:39] MED LIST changes: -HALO1 PO; -MULT-1239 PO; -NALT50TA PO; +TRAZ-220 PO; +ZIPR40CA2 PO
[2018-06-24] MEDS ORDERED: HALOPERIDOL 5 MG TABLET ONE (18:46)
[2018-06-24] MEDS ORDERED: LORazepam 2 MG TABLET ONE (18:46)
[2018-06-24] MEDS: LORazepam 2 MG TABLET PO PRN (18:51)
[2018-06-24] MEDS: HALOPERIDOL 5 MG TABLET PO PRN (18:51)
[2018-06-24 18:52] VITALS: BP 118/78
[2018-06-24] MEDS ORDERED: LOPERAMIDE HCL 2 MG CAPSULE PO PRN (19:15)
[2018-06-24] MEDS ORDERED: MAGNESIUM HYDROXIDE SUSPENSION 30 ML UDCUP PO PRN (19:15)
[2018-06-24] MEDS ORDERED: IBUPROFEN 400 MG TABLET PO PRN (19:15)
[2018-06-24] MEDS ORDERED: ACETAMINOPHEN 325 MG TABLET PO PRN (19:15)
[2018-06-24] MEDS ORDERED: ALBUTEROL SULFATE HFA 90 MCG/PUFF 8 GM INHALER IH PRN (19:15)
[2018-06-24] MEDS ORDERED: MAG HYDROX/AL HYDROX/SIMETH ES 30 ML SUSPENSION UDCUP PO PRN (19:15)
[2018-06-24] MEDS ORDERED: GuaiFENesin/D-METHORPHAN [SUGAR-FREE] 200-20MG/10 ML SYRUP UDCUP PO PRN (19:15)
[2018-06-24] MEDS ORDERED: CloNIDine HCL 0.1 MG TABLET PO PRN (19:15)
[2018-06-24] MEDS ORDERED: DOCUSATE SODIUM 100 MG CAPSULE PO PRN (19:15)
[2018-06-24] MEDS ORDERED: ONDANSETRON HCL 4 MG TABLET PO PRN (19:15)
[2018-06-24] MEDS ORDERED: PETROLATUM,WHITE 71 GM JELLY TP PRN (19:15)
[2018-06-25] MEDS: ZOLPIDEM TARTRATE 10 MG TABLET PO PRN (00:51)
[2018-06-25 00:52] VITALS: BP 109/75
[2018-06-25 08:04] VITALS: BP 111/68
[2018-06-25] MEDS: LORazepam 2 MG TABLET PO PRN ×3 (08:11→18:46)
[2018-06-25] MEDS: HALOPERIDOL 5 MG TABLET PO PRN ×3 (08:11→18:46)
[2018-06-25 08:28] LABS: BASOPHILS % (AUTO) 0.8 % (0.0-2.0); EOSINOPHILS % (AUTO) 1.3 % (1.0-6.0); HEMATOCRIT 42.1 % (41-53); LYMPHOCYTES # (AUTO) 2.2 K/uL (1.0-4.8); LYMPHOCYTES % (AUTO) 24.3 % (22.0-44.0); MEAN CORPUSCULAR HEMOGLOBIN 26.9 pg (26.0-34.0); MEAN CORPUSCULAR HGB CONC 33.3 G/dL (31.0-37.0); MEAN CORPUSCULAR VOLUME 81 fL (80-100); MONOCYTES # (AUTO) 0.8 K/uL (0.1-1.0); MONOCYTES % (AUTO) 8.4 % (2.0-9.0); NEUTROPHILS # (AUTO) 5.9 K/uL (1.8-7.7); NEUTROPHILS % (AUTO) 65.2 % (40.0-70.0); PLATELET COUNT (AUTO) 392 K/uL (150-450); RED BLOOD CELL COUNT(AUTO) 5.21 MIL/uL (4.50-5.90); RED CELL DISTRIBUTION WIDTH 17.9 % (11.5-14.5)
[2018-06-25 08:41] LABS: HEMOGLOBIN A1C 5.7 % (4.5-6.2)
[2018-06-25 08:56] LABS: ALANINE AMINOTRANSFERASE 17 U/L (12-78); ALBUMIN 3.1 g/dL (3.4-5.0); ALKALINE PHOSPHATASE 79 U/L (46-116); ANION GAP 8 mmol/L (8-16); ASPARTATE AMINOTRANSFERASE 13 U/L (15-37); BILIRUBIN,TOTAL 0.4 mg/dL (0.1-1.0); CALCIUM, TOTAL 8.5 mg/dL (8.8-10.5); CARBON DIOXIDE 28 mmol/L (22-29); CHLORIDE 105 mmol/L (98-107); CHOL/HDL RATIO 2.9 (4.2-7.3); CHOLESTEROL 109 mg/dL (131-200); FREE T4 (FREE THYROXINE) 1.06 ng/dL (0.76-1.46); GLOMERULAR FILTR. RATE CALC > 60 mL/min (>60); GLUCOSE,RANDOM 86 mg/dL (70-110); HDL CHOLESTEROL 37 mg/dL (40-60); LDL CHOL (CALC.) 60 mg/dL (0-130); POTASSIUM 3.9 mmol/L (3.5-5.1); SODIUM SERUM 141 mmol/L (136-145); THYROID STIMULATING HORMONE 1.34 uIU/mL (0.36-3.74); TRIGLYCERIDES 61 mg/dL (15-150); UREA NITROGEN, BLOOD 11 mg/dL (7-18)
[2018-06-25 16:00] VITALS: BP 108/65
[2018-06-25] MEDS: ZIPRASIDONE HCL 60 MG CAPSULE PO SCH (16:46)
[2018-06-25] MEDS: TraZODone HCL 150 MG TABLET PO SCH (20:22)
[2018-06-26 06:17] VITALS: BP 108/67
[2018-06-26] MEDS: ZIPRASIDONE HCL 60 MG CAPSULE PO SCH ×2 (06:42→16:42)
[2018-06-26 08:49] VITALS: BP 107/66
[2018-06-26] MEDS: LORazepam 2 MG TABLET PO PRN ×3 (10:46→20:45)
[2018-06-26] MEDS: NICOTINE 14 MG/24 HOUR PATCH TD PRN (11:15)
[2018-06-26 17:12] VITALS: BP 105/61
[2018-06-26] MEDS: TraZODone HCL 150 MG TABLET PO SCH (20:44)
[2018-06-26] MEDS: ZOLPIDEM TARTRATE 10 MG TABLET PO PRN (20:45)
[2018-06-27 02:20] VITALS: BP 110/68
[2018-06-27] MEDS: ZIPRASIDONE HCL 60 MG CAPSULE PO SCH ×2 (06:26→16:31)
[2018-06-27 08:04] VITALS: BP 131/70
[2018-06-27] MEDS: LORazepam 2 MG TABLET PO PRN ×2 (08:54→17:25)
[2018-06-27] MEDS: HALOPERIDOL 5 MG TABLET PO PRN (08:54)
[2018-06-27] MEDS: NICOTINE 14 MG/24 HOUR PATCH TD PRN (14:36)
[2018-06-27 16:51] VITALS: BP 122/73
[2018-06-27] MEDS: TraZODone HCL 150 MG TABLET PO SCH (20:33)
[2018-06-28 06:23] VITALS: BP 124/74
[2018-06-28] MEDS: ZIPRASIDONE HCL 60 MG CAPSULE PO SCH (06:27)
[2018-06-28] MEDS: LORazepam 2 MG TABLET PO PRN (06:27)
[2018-06-28 08:05] VITALS: BP 121/72
[2018-06-28] MEDS ORDERED: TRAZ150 PO (10:11)
[2018-06-28] MEDS ORDERED: ZIPR60CA2 PO (10:11)
== END 2018-06-28 12:50 | disposition home or self-care (01) | DRG 750 ==
LOC: B3A 18:11
PROVIDERS: ADMIT Psychiatry & Neurology Psychiatry; ATTEND Psychiatry & Neurology Child & Adolescent Psychiatry
DX: F20.0 Paranoid schizophrenia (principal); D64.9 Anemia, unspecified; F41.9 Anxiety disorder, unspecified; F19.10 Other psychoactive substance abuse, uncomplicated; Z71.52 Counseling for family member of drug abuser
CPT/HCPCS: 83036; 84439; 84443; 87081

== ENCOUNTER 2020-12-13 22:55 | Emergency (ER) | payer MEDICAID, OTHER ==
[~2020-12-13] VITALS: Ht 180.3 cm; Wt 109.1 kg
[~2020-12-13 22:55] MED LIST changes: -TRAZ-220 PO; +TRAZ150 PO; -ZIPR40CA2 PO; +ZIPR60CA2 PO
[2020-12-14 00:01] LABS: BASOPHILS % (AUTO) 0.2 % (0.0-2.0); EOSINOPHILS % (AUTO) 2.2 % (1.0-6.0); HEMATOCRIT 45.4 % (41-53); HEMOGLOBIN 15.5 g/dL (13.5-17.5); LYMPHOCYTES # (AUTO) 2.4 K/uL (1.0-4.8); LYMPHOCYTES % (AUTO) 26.7 % (22.0-44.0); MEAN CORPUSCULAR HGB CONC 34.2 G/dL (31.0-37.0); MEAN CORPUSCULAR VOLUME 91 fL (80-100); MONOCYTES # (AUTO) 0.7 K/uL (0.1-1.0); MONOCYTES % (AUTO) 7.5 % (2.0-9.0); NEUTROPHILS # (AUTO) 5.8 K/uL (1.8-7.7); NEUTROPHILS % (AUTO) 63.4 % (40.0-70.0); PLATELET COUNT (AUTO) 282 K/uL (150-450); RED BLOOD CELL COUNT(AUTO) 5.01 MIL/uL (4.50-5.90); RED CELL DISTRIBUTION WIDTH 13.5 % (11.5-14.5)
[2020-12-14 00:13] LABS: ANION GAP 10 mmol/L (8-16); CALCIUM, TOTAL 8.5 mg/dL (8.8-10.5); CARBON DIOXIDE 26 mmol/L (22-29); CHLORIDE 105 mmol/L (98-107); CREATININE 1.17 mg/dL (0.60-1.30); GLOMERULAR FILTR. RATE CALC > 60 mL/min (>60); GLUCOSE,RANDOM 128 mg/dL (70-110); POTASSIUM 3.4 mmol/L (3.5-5.1); SODIUM SERUM 141 mmol/L (136-145); UREA NITROGEN, BLOOD 16 mg/dL (7-18)
[2020-12-14 00:19] LABS: ALANINE AMINOTRANSFERASE 18 U/L (12-78); ALBUMIN 3.3 g/dL (3.4-5.0); ALKALINE PHOSPHATASE 108 U/L (46-116); ASPARTATE AMINOTRANSFERASE 10 U/L (15-37); BILIRUBIN,TOTAL 0.2 mg/dL (0.1-1.0); TOTAL PROTEIN, SERUM 6.6 g/dL (6.4-8.2)
[2020-12-14 01:00] VITALS: BP 115/82
== END 2020-12-14 01:20 | disposition home or self-care (01) ==
LOC: EMS 22:55
DX: F41.9 Anxiety disorder, unspecified (principal); F15.10 Other stimulant abuse, uncomplicated; F20.9 Schizophrenia, unspecified; F17.210 Nicotine dependence, cigarettes, uncomplicated
CPT/HCPCS: 36415; 80053; 85025; 99283; G0480